=== PATIENT | female | born 1960 | race Caucasian/White ===

== ENCOUNTER 2017-10-27 13:07 | Outpatient (CLI) | payer OTHER ==
--- NOTE | 2017-10-30 16:56 | Mammography Report ---
DATE OF SERVICE: 10/27/2017 DIGITAL SCREENING MAMMOGRAM: 10/27/2017 CLINICAL INDICATION: A 57-year-old nulliparous patient, for screening. COMPARISON: 07/2016, 05/2013, 11/2010, 09/2009. TECHNIQUE: Routine CC and MLO projections were obtained of the breasts. Bilateral laterally exaggerated craniocaudal views. FINDINGS: The breasts again demonstrate scattered fibroglandular densities bilaterally. A few punctate, typically benign calcifications are present. Circumscribed nodule in the left lower posterior breast is unchanged. No suspicious masses, clustered microcalcifications, or regions of architectural distortion are identified. IMPRESSION: BENIGN FINDINGS. RECOMMENDATION: ROUTINE ANNUAL SCREENING UNLESS OTHERWISE CLINICALLY INDICATED. BIRADS CATEGORY 2-BENIGN FINDINGS. STANDARD QUALIFYING STATEMENTS: 1. This examination was reviewed with the aid of Computer-Aided Detection (CAD). 2. A negative or benign imaging report should not delay biopsy if clinically suspicious findings are present. Consider surgical consultation if warranted. More than 5% of cancers are not identified by imaging. 3. Dense breasts may obscure an underlying neoplasm. TD: 10/30/2017 17:55
== END 2017-10-27 13:08 | disposition home or self-care (01) ==
LOC: DI.S 13:07
PROVIDERS: ATTEND Physician Assistant
DX: Z12.31 Encounter for screening mammogram for malignant neoplasm of breast (principal)
CPT/HCPCS: 77067